=== PATIENT | male | born 1950 | race Caucasian/White ===

== ENCOUNTER 2017-11-14 12:27 | Inpatient (IN) | payer MEDICARE, MEDICAID ==
[~2017-11-14] VITALS: Ht 180.3 cm; Wt 105.0 kg
[2017-11-14] MEDS ORDERED: PLEASE ENTER HEIGHT AND WEIGHT MC SCH (13:00)
[2017-11-14] MEDS ORDERED: PLEASE ENTER ALLERGIES MC SCH (13:00)
[2017-11-14] MEDS ORDERED: SODIUM CHLORIDE FLUSH 10ML SYR IVF ONE (13:00)
[2017-11-14] MEDS ORDERED: ALBUTEROL/IPRATROPIUM 2.5MG/0.5MG, 3 ML NPPB ONE (13:00)
[2017-11-14 13:13] LABS: BASOPHILS # (AUTO) 0.04 x10^3/uL (0-0.1); BASOPHILS % (AUTO) 0 % (0-1); EOSINOPHILS # (AUTO) 0.13 x10^3/uL (0-0.4); EOSINOPHILS % (AUTO) 1 % (1-7); LYMPHOCYTES # (AUTO) 0.93 x10^3/uL (1-3.4); LYMPHOCYTES % (AUTO) 10 % (22-44); MD NO; MEAN CORPUSCULAR HEMOGLOBIN 30.5 pg (27.5-34.5); MEAN CORPUSCULAR HGB CONC 33.4 g/dL (33.2-36.2); MEAN CORPUSCULAR VOLUME 91.4 fL (81-97); MEAN PLATELET VOLUME 8.1 fL (7.4-10.4); MONOCYTES # (AUTO) 0.72 x10^3/uL (0.2-0.8); MONOCYTES % (AUTO) 8 % (2-9); NEUTROPHILS # (AUTO) 7.33 x10^3/uL (1.8-6.8); NEUTROPHILS % (AUTO) 80 % (42-75); PLATELET COUNT 156 x10^3/uL (130-400); RED BLOOD COUNT 5.13 x10^6/uL (4.38-5.82); RED CELL DISTRIBUTION WIDTH 14.3 % (9.4-14.8)
[2017-11-14] MEDS ORDERED: ALBUTEROL/IPRATROPIUM 2.5MG/0.5MG, 3 ML ONE (13:24)
[2017-11-14 13:25] LABS: ALANINE AMINOTRANSFERASE 27 U/L (12-78); ALBUMIN 3.2 g/dL (3.4-5.0); ANION GAP 7 mmol/L (5-15); CALCIUM 8.9 mg/dL (8.5-10.1); CHLORIDE 107 mmol/L (98-107); CREATININE 1.16 mg/dL (0.7-1.3)
[2017-11-14 13:27] LABS: ALKALINE PHOSPHATASE 82 U/L (45-117); BILIRUBIN,TOTAL 0.5 mg/dL (0.2-1.0); TOTAL PROTEIN 7.2 g/dL (6.4-8.2)
[2017-11-14] MEDS ORDERED: methylPREDNISolone SOD SUCC 125 MG/2 ML IVPush ONE (13:30)
[2017-11-14 13:49] LABS: TROPONIN I 0.026 ng/mL (0.000-0.045)
[2017-11-14] MEDS ORDERED: methylPREDNISolone SOD SUCC 125 MG/2 ML ONE (13:59)
[2017-11-14] MEDS ORDERED: FUROSEMIDE 20 MG/2 ML IV ONE (15:00)
[2017-11-14] MEDS ORDERED: FUROSEMIDE 20 MG/2 ML ONE ×2 (15:27→15:33)
[2017-11-14] MEDS ORDERED: ONDANSETRON 2MG/ML, 2ML IVPush PRN (15:30)
[2017-11-14] MEDS ORDERED: ACETAMINOPHEN 325 MG TABLET PO PRN (15:30)
[2017-11-14] MEDS: NICOTINE 14MG/24 HR PATCH.TD24 TD SCH ×2 (15:30→18:34)
[2017-11-14 16:07] LABS: TROPONIN I 0.023 ng/mL (0.000-0.045)
[2017-11-14] MEDS ORDERED: HEPARIN 5,000 UNITS/ML, 1ML ONE (16:16)
[2017-11-14] MEDS: HEPARIN 5,000 UNITS/ML, 1ML SQ SCH ×2 (16:27→23:42)
[2017-11-14 17:15] VITALS: BP 110/74
[2017-11-14] MEDS: CARVEDILOL 3.125 MG TABLET PO SCH (18:32)
[2017-11-14 19:14] VITALS: BP 101/66
[2017-11-14] MEDS: ALBUTEROL/IPRATROPIUM 2.5MG/0.5MG, 3 ML NPPB SCH (19:49)
[2017-11-14 21:32] LABS: TROPONIN I 0.023 ng/mL (0.000-0.045)
[2017-11-15 00:58] VITALS: BP 106/63
[2017-11-15 05:53] VITALS: BP 95/56
[2017-11-15] MEDS: CARVEDILOL 3.125 MG TABLET PO SCH ×2 (05:55→15:58)
[2017-11-15] MEDS: ASPIRIN 325 MG TABLET EC PO SCH (05:55)
[2017-11-15] MEDS: HEPARIN 5,000 UNITS/ML, 1ML SQ SCH ×2 (07:30→16:10)
[2017-11-15] MEDS: ALBUTEROL/IPRATROPIUM 2.5MG/0.5MG, 3 ML NPPB SCH ×4 (07:30→20:16)
[2017-11-15] MEDS ORDERED: REGADENOSON 0.4 MG/5 ML SYRINGE ONE (08:12)
[2017-11-15 11:45] VITALS: BP 96/62
[2017-11-15 13:49] VITALS: BP 93/62
[2017-11-15 20:05] VITALS: BP 100/66
[2017-11-15] MEDS: NICOTINE 14MG/24 HR PATCH.TD24 TD SCH (21:38)
[2017-11-16] MEDS: HEPARIN 5,000 UNITS/ML, 1ML SQ SCH ×4 (00:12→22:04)
[2017-11-16 00:23] VITALS: BP 105/68
[2017-11-16 06:17] VITALS: BP 108/61
[2017-11-16] MEDS: CARVEDILOL 3.125 MG TABLET PO SCH ×2 (06:21→16:40)
[2017-11-16] MEDS: ASPIRIN 325 MG TABLET EC PO SCH (06:21)
[2017-11-16 06:54] VITALS: BP 109/69
[2017-11-16] MEDS: ALBUTEROL/IPRATROPIUM 2.5MG/0.5MG, 3 ML NPPB SCH ×4 (08:07→20:00)
[2017-11-16] MEDS ORDERED: SODIUM CHLORIDE 0.9% 1,000 ML IV ONE (08:50)
[2017-11-16] MEDS: FUROSEMIDE 20 MG/2 ML IV SCH ×2 (09:04→16:41)
[2017-11-16 13:10] VITALS: BP 93/61
[2017-11-16 19:55] VITALS: BP 133/85
[2017-11-16] MEDS: ATORVASTATIN 20 MG TABLET PO SCH (22:04)
[2017-11-17 02:42] VITALS: BP 101/59
[2017-11-17 05:16] LABS: BASOPHILS # (AUTO) 0.05 x10^3/uL (0-0.1); BASOPHILS % (AUTO) 1 % (0-1); EOSINOPHILS # (AUTO) 0.18 x10^3/uL (0-0.4); EOSINOPHILS % (AUTO) 2 % (1-7); LYMPHOCYTES # (AUTO) 0.92 x10^3/uL (1-3.4); LYMPHOCYTES % (AUTO) 9 % (22-44); MD NO; MEAN CORPUSCULAR HEMOGLOBIN 30.3 pg (27.5-34.5); MEAN CORPUSCULAR HGB CONC 33.2 g/dL (33.2-36.2); MEAN CORPUSCULAR VOLUME 91.2 fL (81-97); MEAN PLATELET VOLUME 8.5 fL (7.4-10.4); MONOCYTES # (AUTO) 0.94 x10^3/uL (0.2-0.8); MONOCYTES % (AUTO) 9 % (2-9); NEUTROPHILS # (AUTO) 8.71 x10^3/uL (1.8-6.8); NEUTROPHILS % (AUTO) 81 % (42-75); PLATELET COUNT 144 x10^3/uL (130-400); RED BLOOD COUNT 5.01 x10^6/uL (4.38-5.82); RED CELL DISTRIBUTION WIDTH 14.5 % (9.4-14.8)
[2017-11-17 05:17] LABS: INTERNATIONAL NORMALIZED RATIO 1.04 (0.93-1.1); PROTHROMBIN TIME 10.8 Seconds (9.6-11.5)
[2017-11-17 05:31] LABS: CALCIUM 8.6 mg/dL (8.5-10.1); CHLORIDE 101 mmol/L (98-107)
[2017-11-17 05:37] LABS: ANION GAP 5 mmol/L (5-15); CHOL/HDL RATIO 2.3; CHOLESTEROL, TOTAL 117 mg/dL (140-239); CREATININE 1.24 mg/dL (0.7-1.3); HDL CHOL % 44 % (26-37); HDL CHOLESTEROL (DIRECT) 51 mg/dL (40-60); LDL CHOLESTEROL,CALCULATED 48 mg/dL (54-169); LDL/HDL RATIO 0.9 (0.5-3.0); TRIGLYCERIDES 92 mg/dL (50-200); VLDL CHOLESTEROL 18 mg/dL (0-25)
[2017-11-17 05:51] VITALS: BP 107/73
[2017-11-17] MEDS: CARVEDILOL 3.125 MG TABLET PO SCH ×2 (05:53→17:33)
[2017-11-17] MEDS: ASPIRIN 325 MG TABLET EC PO SCH (05:53)
[2017-11-17 06:42] VITALS: BP 83/53
[2017-11-17 06:50] VITALS: BP_SYST 112; BP_SYST 99; BP_DIAS 55; BP_DIAS 65
[2017-11-17] MEDS: ALBUTEROL/IPRATROPIUM 2.5MG/0.5MG, 3 ML NPPB SCH ×4 (07:00→20:50)
[2017-11-17] MEDS ORDERED: DIGOXIN 0.25 MG/ML, 2ML ONE (07:05)
[2017-11-17] MEDS: HEPARIN 5,000 UNITS/ML, 1ML SQ SCH ×3 (07:30→23:27)
[2017-11-17] MEDS: FUROSEMIDE 20 MG/2 ML IV SCH (08:46)
[2017-11-17] MEDS ORDERED: FENTANYL PF 100 MCG/2ML ONE (11:49)
[2017-11-17] MEDS ORDERED: MIDAZOLAM 1 MG/ML, 5ML ONE (11:49)
[2017-11-17] MEDS ORDERED: TICAGRELOR 90 MG TABLET ONE (11:49)
[2017-11-17] MEDS ORDERED: NITROGLYCERIN 5 MG/ML, 10ML ONE (11:49)
[2017-11-17] MEDS ORDERED: VERAPAMIL 2.5 MG/ML, 2ML ONE (11:49)
[2017-11-17] MEDS ORDERED: LIDOCAINE 2%, 2ML ONE (11:50)
[2017-11-17] MEDS ORDERED: HEPARIN 1,000 UNITS/ML, 10ML ONE (11:50)
[2017-11-17] MEDS ORDERED: BIVALIRUDIN 250 MG ONE (11:50)
[2017-11-17 13:07] VITALS: BP 87/55
[2017-11-17] MEDS ORDERED: SODIUM CHLORIDE 0.9%, 250ML IVBOLUS ONE ×2 (15:00)
[2017-11-17] MEDS: NICOTINE 14MG/24 HR PATCH.TD24 TD SCH (15:03)
[2017-11-17] MEDS ORDERED: DOBUTAMINE/D5W PMX 250 ML ONE (17:28)
[2017-11-17] MEDS: DOBUTAMINE/D5W PMX 250 ML IV PRN (17:36)
[2017-11-17 19:46] VITALS: BP 89/55
[2017-11-17] MEDS: ATORVASTATIN 20 MG TABLET PO SCH (20:36)
[2017-11-18] VITALS (7 sets, daily range): BP systolic 80–109; BP diastolic 50–67
[2017-11-18] MEDS ORDERED: ONDANSETRON ODT 4 MG ONE (00:11)
[2017-11-18] MEDS: DOBUTAMINE/D5W PMX 250 ML IV PRN (00:52)
[2017-11-18] MEDS: ASPIRIN 325 MG TABLET EC PO SCH (05:54)
[2017-11-18] MEDS: CARVEDILOL 3.125 MG TABLET PO SCH ×2 (05:54→16:39)
[2017-11-18] MEDS: HEPARIN 5,000 UNITS/ML, 1ML SQ SCH ×3 (07:30→23:22)
[2017-11-18] MEDS: ALBUTEROL/IPRATROPIUM 2.5MG/0.5MG, 3 ML NPPB SCH ×4 (09:25→20:59)
[2017-11-18 09:28] LABS: BASOPHILS # (AUTO) 0.01 x10^3/uL (0-0.1); BASOPHILS % (AUTO) 0 % (0-1); EOSINOPHILS # (AUTO) 0.07 x10^3/uL (0-0.4); EOSINOPHILS % (AUTO) 1 % (1-7); LYMPHOCYTES # (AUTO) 0.86 x10^3/uL (1-3.4); LYMPHOCYTES % (AUTO) 9 % (22-44); MD NO; MEAN CORPUSCULAR HEMOGLOBIN 29.8 pg (27.5-34.5); MEAN CORPUSCULAR VOLUME 90.4 fL (81-97); MEAN PLATELET VOLUME 8.6 fL (7.4-10.4); MONOCYTES # (AUTO) 0.59 x10^3/uL (0.2-0.8); MONOCYTES % (AUTO) 6 % (2-9); NEUTROPHILS # (AUTO) 7.85 x10^3/uL (1.8-6.8); NEUTROPHILS % (AUTO) 84 % (42-75); PLATELET COUNT 153 x10^3/uL (130-400); RED BLOOD COUNT 5.14 x10^6/uL (4.38-5.82); RED CELL DISTRIBUTION WIDTH 14.5 % (9.4-14.8)
[2017-11-18] MEDS ORDERED: SODIUM CHLORIDE 0.9% 250 ML IV SCH (09:30)
[2017-11-18 09:36] LABS: ANION GAP 7 mmol/L (5-15); CALCIUM 8.4 mg/dL (8.5-10.1); CHLORIDE 101 mmol/L (98-107); CREATININE 1.33 mg/dL (0.7-1.3)
[2017-11-18] MEDS: NICOTINE 14MG/24 HR PATCH.TD24 TD SCH (16:39)
[2017-11-18] MEDS: ATORVASTATIN 20 MG TABLET PO SCH (19:49)
[2017-11-19 02:37] VITALS: BP 94/63
[2017-11-19 05:19] VITALS: BP 106/70
[2017-11-19] MEDS: CARVEDILOL 3.125 MG TABLET PO SCH ×2 (05:24→16:33)
[2017-11-19] MEDS ORDERED: ASPIRIN 81 MG TABLET EC PO SCH (06:00)
[2017-11-19] MEDS: HEPARIN 5,000 UNITS/ML, 1ML SQ SCH ×2 (06:06→15:30)
[2017-11-19] MEDS: ALBUTEROL/IPRATROPIUM 2.5MG/0.5MG, 3 ML NPPB SCH ×4 (07:00→14:59)
[2017-11-19 07:09] VITALS: BP 90/60
[2017-11-19 10:01] LABS: O2 FLOW 4 L/min
[2017-11-19] MEDS ORDERED: ASPI-621 PO (12:09)
[2017-11-19] MEDS ORDERED: IPRA4AER PO (12:09)
[2017-11-19] MEDS ORDERED: ATOR20TA9 PO (12:09)
[2017-11-19] MEDS ORDERED: CARV3.1212 PO (12:09)
[2017-11-19] MEDS ORDERED: NICO-486 TD (12:09)
[2017-11-19 12:20] VITALS: BP 85/52
[2017-11-19] MEDS: NICOTINE 14MG/24 HR PATCH.TD24 TD SCH (16:33)
== END 2017-11-19 18:34 | disposition home or self-care (01) | DRG 286 ==
LOC: ED 14:34 → EDIP 14:35 → ED 14:45 → 5SO 17:02
PROVIDERS: ADMIT Hospitalist; ATTEND Hospitalist
PROC: 4A023N8 Measurement of Cardiac Sampling and Pressure, Bilateral, Percutaneous Approach (ICD-10-PCS; principal; 2017-11-17)
PROC: B2111ZZ Fluoroscopy of Multiple Coronary Arteries using Low Osmolar Contrast (ICD-10-PCS; 2017-11-17)
PROC: B2151ZZ Fluoroscopy of Left Heart using Low Osmolar Contrast (ICD-10-PCS; 2017-11-17)
DX: I50.41 Acute combined systolic (congestive) and diastolic (congestive) heart failure (principal); J96.01 Acute respiratory failure with hypoxia; I42.9 Cardiomyopathy, unspecified; I35.0 Nonrheumatic aortic (valve) stenosis; F17.210 Nicotine dependence, cigarettes, uncomplicated; M35.3 Polymyalgia rheumatica; J43.9 Emphysema, unspecified; Z80.1 Family history of malignant neoplasm of trachea, bronchus and lung; Z66 Do not resuscitate; I27.20 Pulmonary hypertension, unspecified; N18.9 Chronic kidney disease, unspecified; R01.1 Cardiac murmur, unspecified; G47.00 Insomnia, unspecified
CPT/HCPCS: 36415; 36600; 71045; 78452; 80048; 80053; 80061; 82803; 83735; 83880; 84484; 85025; 85610; 85730; 93005; 93017; 93306; 93460; 93970; 94060; 94640; 94667; 94726; 94729; 96374; 99156; 99157; C1769; C1894; J0583; J1644; J2250; J2785; J3010; J3490; J7620; A9502; C9898; J1250; J1940; J2930; J7050; Q9967

== ENCOUNTER → 2017-11-26 | Outpatient (CLI) | payer MEDICARE, MEDICAID ==
[~2017-11-26] MED LIST: ASPI-621 PO; ATOR20TA9 PO; CARV3.1212 PO; IPRA4AER PO; NICO-486 TD
== END ==
LOC: RAD 13:20
PROVIDERS: ATTEND Thoracic Surgery (Cardiothoracic Vascular Surgery)
DX: M48.54XA Collapsed vertebra, not elsewhere classified, thoracic region, initial encounter for fracture (principal); M48.56XA Collapsed vertebra, not elsewhere classified, lumbar region, initial encounter for fracture; I25.10 Atherosclerotic heart disease of native coronary artery without angina pectoris; I70.0 Atherosclerosis of aorta; J43.2 Centrilobular emphysema
CPT/HCPCS: 71250

== ENCOUNTER → 2017-12-15 | Outpatient (CLI) | payer MEDICARE, MEDICAID ==
[~2017-12-15] MED LIST changes: +METOPROLOL 1 MG/ML, 5ML ONE; +OMNIPAQUE 350 MG/ML, 100ML BOTTLE ONE
== END | disposition home or self-care (01) ==
LOC: RAD 12:36
PROVIDERS: ATTEND Internal Medicine Cardiovascular Disease
DX: J90 Pleural effusion, not elsewhere classified (principal); I70.0 Atherosclerosis of aorta; I70.8 Atherosclerosis of other arteries; E78.5 Hyperlipidemia, unspecified; I65.23 Occlusion and stenosis of bilateral carotid arteries
CPT/HCPCS: 71275; 74174; 93880; Q9967